=== PATIENT | female | born 1945 | race Caucasian/White ===

== ENCOUNTER 2019-07-07 06:02 | Day surgery (SDC) | payer MEDICARE, OTHER ==
[~2019-07-07] VITALS: Ht 154.9 cm; Wt 56.4 kg
--- NOTE | ~2019-07-07 | OP ---
PATIENT NAME: ARMANI MCDONOUGH MEDICAL RECORD: [id number] :47 LOCATION:D[facility] ADMISSION DATE: SURGEON: ADELITA CORDOBA MD DATE OF OPERATION: 07/07/2019 PROCEDURE: EGD with biopsy, EGD with balloon dilatation. FILLER PICKER: Adelita Cordoba MD SCOPE: An Olympus video gastroscope. MEDICATIONS: Provided per TIVA anesthesia. The patient received 150 mg of propofol for this procedure, O2 4 liters. INDICATION FOR THE PROCEDURE: The patient is having increasing problems with gastroesophageal reflux disease, heartburn, dysphagia for solids, most pronounced in the distal esophageal area. 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 daily for her gastroesophageal reflux disease, which has had some breakthrough. She will have an EGD this date. FINDINGS AND DESCRIPTION OF PROCEDURE: Informed consent was given. The patient was made comfortable with the above medications. After reaching an adequate level of sedation by slow IV push, the patient was placed on her left side. The endoscope was then advanced under direct visualization through the posterior pharyngeal area and was advanced to the distal esophagus. At the distal esophageal area, a stenotic Schatzki's ring was encountered and after the inspection part of the EGD was completed, a CRE microvasive balloon was placed in this area dilated to 60-Gh[place]ian, held in place for 1 minute without complication and a good result. The patient has erosions at the gastroesophageal junction and biopsies were obtained. On entering the stomach and retroflexing, mild inflammation was noted in the cardia and fundus. We then proceeded to the body of the stomach where some erosions and streaking was seen with erythema and mild edema and then proceeded to the antrum with the same findings were appreciated and a histopathology GAYLA biopsy was obtained. The duodenal bulb had some raised, fairly mildly inflamed tissue and biopsies were taken. The second portion of the duodenum had mild inflammation present. Biopsies were obtained. It was noted that bowel was also present. The scope was then withdrawn. IMPRESSION: 1. The patient with a stenotic Schatzki's ring, which was dilated to 60-Gh[place]ian without complication. 2. Erosive esophagitis in the setting of Salomon's esophagus. 3. Small hiatal hernia. 4. Erosive gastritis, most pronounced in the body and the antrum. Biopsy obtained for histopathology and Helicobacter pylori. 5. Mild duodenitis in the duodenal bulb, biopsied. 6. Mild inflammation in the duodenum, second portion, biopsied. PLAN: 1. The patient should follow reflux precautions stringently, both dietary and positional. No chocolate, tomato, citrus, caffeine, fatty food, peppermint. The patient should sit up for 2 hours after every meal and if she has problems OPERATIVE REPORT [id number] SHARONDAARMANI at night she should sleep with the head of the bed elevated. 2. Caution with anti-inflammatory drugs. 3. Continue omeprazole at a dose of 20 mg p.o. every morning and we will add famotidine at 20 mg p.o. at bedtime. TRANSINT:[id number] Voice Confirmation ID: [id number] DOCUMENT ID: [id number] ADELITA CORDOAB MD CC: CLAY HOOD MD and LEMUEL ACEVES MD [id number] DICTATION DATE: 07/07/19 0849 REORDERING CLERK: 07/07/19 1034 [facility] 07/07/19 [id number] [place] [address]
[2019-07-07 06:44] LABS: HEMOGLOBIN 14.7 g/dL (12-16); MCH 31.1 pg (26.0-34.0); MCHC 33.4 g/dL (31.0-37.0); RBC 4.73 10x6/uL (4.00-5.40); RDW 13.4 % (11.5-14.5); WBC 8.2 10x3/uL (4.8-10.8)
[2019-07-07] MEDS ORDERED: BAYER CHEWABLE81 MG PO (07:26)
[2019-07-07] MEDS ORDERED: LIPITOR40 MG PO (07:26)
[2019-07-07] MEDS ORDERED: CALTRATE (07:27)
[2019-07-07] MEDS ORDERED: COZAAR100 MG PO (07:28)
[2019-07-07] MEDS ORDERED: ALENDRONATE SOD35 MG PO (07:28)
[2019-07-07] MEDS ORDERED: HYDROCHLOROTH12.5 M1 PO (07:29)
[2019-07-07] MEDS ORDERED: ESTRACE 0.0142.5 GM VG (07:29)
[2019-07-07] MEDS ORDERED: PEPCID40 MG PO (07:30)
[2019-07-07] MEDS ORDERED: KLOR-CON 1010 MEQ PO (07:30)
[2019-07-07] MEDS ORDERED: NORVASC2.5 MG PO (07:31)
[2019-07-07] MEDS ORDERED: TOPROL XL25 MG PO (07:31)
[2019-07-07 07:48] VITALS: Ht 154.9 cm; Wt 56.4 kg
[2019-07-07] MEDS ORDERED: ELAVIL25 MG PO (07:55)
--- NOTE | 2019-07-07 09:37 | NUR ---
0915 IV DC'D. CATHETER TIP INTACT. NO BLEEDING AT SITE AFTER HOLDING PRESSURE. BANDAID APPLIED. PT REPORTS HAVING A "SCRATCHY THROAT" FEELS BETTER DRINKING COOL WATER. REVIEWED DISCHARGE INSTRUCTIONS AND PT VOICES UNDERSTANDING OF INSTRUCTIONS.
== END 2019-07-07 09:27 | disposition home or self-care (01) ==
LOC: D.OPS 06:02
PROVIDERS: Anesthesiology; ATTEND Internal Medicine Gastroenterology
DX: K21.9 Gastro-esophageal reflux disease without esophagitis (principal); R12 Heartburn; R13.10 Dysphagia, unspecified; K22.70 Barrett's esophagus without dysplasia; K22.2 Esophageal obstruction; Z86.010 Personal history of colon polyps; R10.30 Lower abdominal pain, unspecified; K59.09 Other constipation